=== PATIENT | female | born 1975 ===

== ENCOUNTER 2017-11-01 05:02 | Emergency (ER) | payer OTHER ==
[~2017-11-01] VITALS: Ht 157.5 cm; Wt 67.1 kg
[2017-11-01] MEDS ORDERED: FOLIC ACID1 MG (05:29)
[2017-11-01] MEDS ORDERED: PROGESTERONE200 MG (05:29)
[2017-11-01] MEDS ORDERED: SYNTH (05:31)
== END 2017-11-01 12:50 | disposition home or self-care (01) ==
LOC: ER 05:02
DX: O23.41 Unspecified infection of urinary tract in pregnancy, first trimester (principal); Z34.01 Encounter for supervision of normal first pregnancy, first trimester

== ENCOUNTER 2018-03-25 17:37 | Outpatient (CLI) | payer OTHER ==
[~2018-03-25 17:37] MED LIST: FOLIC ACID1 MG; PROGESTERONE200 MG; SYNTH
== END 2018-03-25 17:40 | disposition home or self-care (01) ==
LOC: NST 17:37
DX: Z34.83 Encounter for supervision of other normal pregnancy, third trimester (principal)

== ENCOUNTER 2018-04-28 11:29 | Inpatient (IN) | payer OTHER ==
[~2018-04-28] VITALS: Ht 157.5 cm; Wt 3.2 kg
[2018-05-21] MEDS ORDERED: SYNTHROID100 MCG PO (07:49)
[2018-05-21] MEDS ORDERED: PRENATAL TABLE1 EACH PO (07:50)
== END 2018-05-24 11:03 | DRG 788 ==
LOC: LDR 05-21 07:29 → SURG-SUITE 05-21 07:29 → OB/GYN 05-22 14:00 → SURG-SUITE 05-24 11:03
PROVIDERS: ADMIT Obstetrics & Gynecology Maternal & Fetal Medicine
PROC: 4A1HXCZ Monitoring of Products of Conception, Cardiac Rate, External Approach (ICD-10-PCS; 2018-05-21)
PROC: 4A033R1 Measurement of Arterial Saturation, Peripheral, Percutaneous Approach (ICD-10-PCS; 2018-05-21)
PROC: 10D00Z1 Extraction of Products of Conception, Low, Open Approach (ICD-10-PCS; principal; 2018-05-21 12:00)
DX: O33.8 Maternal care for disproportion of other origin (principal); Z3A.39 39 weeks gestation of pregnancy; Z37.0 Single live birth

== ENCOUNTER 2018-05-16 15:46 | Outpatient (CLI) | payer OTHER | END 2018-05-16 16:37 | disposition home or self-care (01) | LOC: NST 15:46 | DX: Z34.83 Encounter for supervision of other normal pregnancy, third trimester (principal) ==

== ENCOUNTER 2020-01-17 11:30 | Inpatient (IN) | payer OTHER ==
[~2020-01-17] VITALS: Ht 157.5 cm; Wt 3.2 kg
[~2020-01-17 11:30] MED LIST changes: +PRENATAL TABLE1 EACH PO; +SYNTHROID100 MCG PO
[2020-01-27] MEDS ORDERED: KETO10TA2 PO (10:48)
[2020-01-27] MEDS ORDERED: OXYC1TAB9 PO (10:48)
== END 2020-01-27 14:58 | disposition home or self-care (01) | DRG 788 ==
LOC: O/R 01-24 05:50 → OB/GYN 01-24 08:30 → SURG-SUITE 01-24 08:53 → OB/GYN 01-24 11:30 → SURG-SUITE 01-27 14:58
PROVIDERS: ADMIT Obstetrics & Gynecology Maternal & Fetal Medicine; ATTEND Obstetrics & Gynecology Maternal & Fetal Medicine
PROC: 3E033VJ Introduction of Other Hormone into Peripheral Vein, Percutaneous Approach (ICD-10-PCS; 2020-01-24)
PROC: 4A1HXFZ Monitoring of Products of Conception, Cardiac Rhythm, External Approach (ICD-10-PCS; 2020-01-24)
PROC: 10D00Z1 Extraction of Products of Conception, Low, Open Approach (ICD-10-PCS; principal; 2020-01-24 08:30)
DX: O34.211 Maternal care for low transverse scar from previous cesarean delivery (principal); Z3A.38 38 weeks gestation of pregnancy; Z37.0 Single live birth